=== PATIENT | female | born 1960 | race Caucasian/White ===

== ENCOUNTER 2017-05-25 04:23 | Emergency (ER) | payer MEDICARE, OTHER ==
[~2017-05-25] VITALS: Ht 165.1 cm; Wt 100.0 kg
[~2017-05-25 04:23] MED LIST: ALBU8.5H3 INH; CITA10TA72 PO; CLON1TAB3 PO; CYCL-319 PO; ELIM TOP; GABA300C16 PO; HYDR-762 PO; LEVO75TA5 PO; LITH300C PO; METH500T8 PO; OMEP40CA6 PO; PRAZ5CAP16 PO; QUET100T32 PO; SIMV40TA2 PO; TRIA15CR55 TOP; [UNRECOGNIZED DRUG - CODE] TD
[2017-05-25 04:29] VITALS: Ht 165.1 cm; Wt 100.0 kg
[2017-05-25] MEDS ORDERED: ONDANSETRON (ODT) 4 MG TAB ODT STA (05:08)
[2017-05-25] MEDS ORDERED: ABCC1C PO (05:17)
[2017-05-25] MEDS ORDERED: ONDA4TAB14 PO (05:17)
[2017-05-25] MEDS ORDERED: ACET/BUTAL/CAFF/CODEINE CAP PO ONE (05:30)
--- NOTE | 2017-05-25 05:31 | ERD ---
ER Documentation Chief Complaint Chief Complaint pt reports VENTURA worsening after botox treatment for migraines HPI 56-year-old female presents here to emergency department for complaints of headache worsening tonight. Patient is currently starting treatment of Botox treatment for her migraines with only mild relief. Headache got worse tonight. Patient has history of chronic headaches, migraine headaches. Patient describes the headache as throbbing pain, succession scale, not better or worse with anything. Patient did not have any head injury. Patient is complaining of light sensitivity. Patient also complaining of noise sensitivity. Patient does not have any active vomiting but is complaining of nausea. Patient denies any fever chills ROS All systems reviewed and are negative except as per history of present illness. Medications Home Meds Active Scripts Ondansetron (Ondansetron Odt) 4 Mg Tab.rapdis, 4 MG PO Q6H Y for NAUSEA AND/OR VOMITING, #20 TAB Prov:BOSTON LOPEZ [employer] 05/25/17 Lxpfstiqyslou-Qufqwkhdkt-Ikacrpsl-Codeine* (Fioricet w/Codeine*) [id number] -30MG Cap, 1 CAP PO Q4H Y for PAIN LEVEL 1-5, #20 CAP Prov:BOSTON OLPEZ [employer] TE[employer] 05/25/17 Triamcinolone Acetonide (Triamcinolone Acetonide) 0.1% - 15 Gm Cream.gm., 1 APPLIC TOP BID, #1 TUB Prov:ALEA CHANG DO 02/05/16 Permethrin* (Elimite*) 5% Cr, 1 APPLIC TOP ONCE, #1 TUB Prov:[facility] 02/05/16 Cyclobenzaprine Hcl* (Cyclobenzaprine Hcl*) 10 Mg Tablet, 10 MG PO TID, #15 TAB Prov:VANDANA KIRKLAND PA-C 07/07/15 Reported Medications Methocarbamol* (Methocarbamol*) 500 Mg Tablet, 500 MG PO BID, TAB 07/30/15 Omeprazole* (Omeprazole*) 40 Mg Capsule.dr, 40 MG PO DAILY, #30 CAP 07/30/15 Simvastatin* (Zocor*) 40 Mg Tablet, 40 MG PO QHS, #30 TAB 07/30/15 Quetiapine Fumarate* (Quetiapine Fumarate*) 100 Mg Tablet, 100 MG PO HS, TAB 07/30/15 Clonazepam* (Clonazepam*) 1 Mg Tablet, 1 MG PO DAILY Y for ANXIETY, TAB 07/30/15 Pinas Carbonate* (Eskalith*) 300 Mg Capsule, 300 MG PO BID, CAP 07/30/15 Prazosin Hcl* (Prazosin Hcl*) 5 Mg Capsule, 5 MG PO HS, CAP 07/30/15 Citalopram Hydrobromide* (Celexa*) 10 Mg Tablet, 30 MG PO DAILY, #30 TAB 07/30/15 Gabapentin* (Gabapentin*) 300 Mg Capsule, 300 MG PO TID, CAP 10/23/14 Hydrocodone Bit-Acetaminophen* ([place]*) 10-325 Mg Tablet, 1 TAB PO BID Y for PAIN, TAB 10/23/14 Estradiol* (Estraderm* 0.05 mg/24 hrs Patch) 1 Patch Patch, 1 PATCH TD WEEKLY, PATCH 10/23/14 Albuterol Sulfate* (Proair HFA*) 8.5 Gm Hfa.aer.ad, 2 PUFF INH Q4H Y for WHEEZING AND SOB, INH 10/23/14 Levothyroxine Sodium* (Levothyroxine Sodium*) 75 Mcg Tablet, 75 MCG PO AC BREAKFAST, TAB 10/23/14 Allergies Allergies: Coded Allergies: haloperidol (Verified Allergy, Severe, TONGUE SWELLING, 07/30/15) PMhx/Soc History of Surgery: Yes (lap band) Anesthesia Reaction: No Hx Neurological Disorder: Yes (claims to have had TIA) Hx Respiratory Disorders: Yes (ASTHMA) Hx Cardiac Disorders: Yes (HTN) Hx Psychiatric Problems: Yes (SCHIZOPHRENIA) Hx Miscellaneous Medical Probl: Yes (biploar d/o, raynauds syndrome, partial bowel obstruction, asthma) Hx Alcohol Use: No Hx Substance Use: Yes (Methamphetamine Feb 12, 2015, opiods) Hx Tobacco Use: Yes Smoking Status: Current every day smoker FmHx Family History: No coronary disease, No diabetes, No other Physical Exam Vitals Vital Signs Date Time Temp Pulse Resp B/P Pulse Ox O2 Delivery O2 Flow Rate FiO2 05/25/17 04:29 98.9 81 20 137/85 97 Physical Exam GENERAL: The patient is well developed and appropriate for usual state of health, in no apparent distress. CHEST: Clear to auscultation bilaterally. There are no rales, wheezes or rhonchi. HEART: Regular rate and rhythm. No murmurs, clicks, rubs or gallops. No S3 or S4. ABDOMEN: Soft, nontender and nondistended. Good bowel sounds. No rebound or guarding. No gross peritonitis. No gross organomegaly or masses. No Genao sign or McBurney point tenderness. BACK: No midline or flank tenderness. EXTREMITIES: Equal pulses bilaterally. There is no peripheral clubbing, cyanosis or edema. No focal swelling or erythema. Full range of motion. Grossly neurovascularly intact. NEURO: Alert and oriented. Cranial nerves 2-12 intact. Motor strength in all 4 extremities with 5/5 strength. Sensation grossly intact. Normal speech and gait. Negative Romberg sign. Negative pronator drift. SKIN: There is no apparent rash or petechia. The skin is warm and dry. HEMATOLOGIC AND LYMPHATIC: There is no evidence of excessive bruising or lymphedema. No gross cervical, axillary, or inguinal lymphadenopathy. Results 24 hrs Current Medications Medications (Trade) Dose Ordered Sig/Mya Route PRN Reason Start Time Stop Time Status Last Admin Dose Admin Acetam/Butalbital/ Caffeine/Codeine (Fioricet/ Codeine) 1 cap ONCE ONCE PO 05/25/17 05:30 05/25/17 05:31 05/25/17 05:17 Ondansetron HCl (Zofran Odt) 4 mg ONCE STAT ODT 05/25/17 05:08 05/25/17 05:09 DC 05/25/17 05:17 Patient was given medication for pain here in emergency department, after treatment, patient verbalized feeling much better. Patient's pain is improved. Zofran was given for nausea. Procedures/MDM Medical Decision Making: Patient symptoms are consistent with migraine headache , possible tension headache. There is low suspicion for neurological emergencies at this time since patients neurologic exam is normal. Patient did not have any altered level consciousness, vomiting, changes in balance or memory and did not have any head injury. CT scan of the brain not indicated at this time, was advised to see neurologist specialist for further management of her headaches. Patient was advised to return to emergency department for any worsening symptoms Rx: Fioricet with codeine, Zofran Dispostion: Home. Stable Disclaimer: Inadvertent spelling and grammatical errors are likely due to EHR/ dictation software use and do not reflect on the overall quality of patient care. Also, please note that the electronic time recorded on this note does not necessarily reflect the actual time of the patient encounter. Departure Diagnosis: Primary Impression: Headache Headache type: unspecified Headache chronicity pattern: acute headache Intractability: not intractable Qualified Code: R51 - Acute nonintractable headache, unspecified headache type Condition: Stable Patient Instructions: Self-Care for Headaches Referrals: RAUL PORTILLO MD (PCP) BOSTON LOPEZ NP May 25, 2017 05:31
== END 2017-05-25 05:31 | disposition home or self-care (01) ==
LOC: FTE 04:23
DX: R51 Headache (principal); I10 Essential (primary) hypertension; J45.909 Unspecified asthma, uncomplicated; F17.210 Nicotine dependence, cigarettes, uncomplicated
CPT/HCPCS: 99283

== ENCOUNTER 2017-08-23 14:59 | Emergency (ER) | END 2017-08-23 17:07 | disposition left against medical advice (07) ==

== ENCOUNTER 2017-11-18 05:59 | Emergency (ER) | END 2017-11-18 08:21 | disposition home or self-care (01) ==

== ENCOUNTER 2018-03-14 12:20 | Emergency (ER) | END 2018-03-14 14:46 | disposition home or self-care (01) ==